=== PATIENT | male | born 1960 | race Caucasian/White ===

== ENCOUNTER 2024-01-12 10:26 | Outpatient (REF) | payer OTHER, SELFPAY ==
--- NOTE | ~2024-01-12 | MR_ITS ---
EXAMINATION: MR LUMBAR SPINE WITHOUT CONTRAST CLINICAL INFORMATION: Radiculopathy low back pain COMPARISON: None TECHNIQUE: MRI of the lumbar spine was obtained using routine sequences without contrast. FINDINGS: Normal lumbar lordosis is preserved. Trace retrolisthesis at L5-S1. Vertebral body heights are maintained. There is no suspicious osseous lesion. Diffuse disc desiccation with normal L5-S1 disc height loss. Level by level detail as follows: L1-L2: No spinal canal or neural foraminal stenosis. L2-L3: Disc bulge and mild facet arthrosis. Ventral annular fissuring. No spinal canal stenosis. Patent neural foramina. L3-L4: Disc bulge with paracentral annular fissure and mild facet arthrosis. No spinal canal stenosis. Minimal left without right neural foraminal encroachment. L4-L5: Annular disc bulge with right subarticular/foraminal disc protrusion. Mild facet arthrosis. No spinal canal stenosis. Mild neural foraminal encroachment. L5-S1: Annular disc bulge with right subarticular disc protrusion and mild facet arthrosis. No spinal canal stenosis. Mild neural foraminal encroachment. The conus medullaris terminates at the level of L1. The distal spinal cord is normal in appearance. No epidural fluid collection, hematoma, or mass. No significant abnormalities of the paraspinal musculature. Limited evaluation of the intra-abdominal structures without significant abnormalities. The abdominal aorta is of normal contour and caliber. MR/MR lumbar spine wo con IMPRESSION: Mild lumbar spondylosis without significant spinal canal or neural foraminal stenosis at any level. Electronically signed by: Harmony Brooks MD 01/24/2024 01:08 PM EDT
== END 2024-01-12 10:27 | disposition home or self-care (01) ==
LOC: HO.MRI 10:26
PROVIDERS: PCP Internal Medicine; Visit Provider Psychiatry & Neurology Neurology
DX: M54.16 Radiculopathy, lumbar region (principal)
CPT/HCPCS: 72148